=== PATIENT | female | born 1955 | race Caucasian/White ===

== ENCOUNTER 2016-08-31 08:19 | Emergency (ER) | payer BC, OTHER ==
--- NOTE | 2016-08-31 08:21 | PDOC ---
History of Present Illness - General Chief Complaint: Pain Stated Complaint: LEFT KNEE PAIN Time Seen by Provider: 08/31/16 08:20 History Source: Patient Exam Limitations: No Limitations - History of Present Illness Initial Comments: 08/31/16 08:20 THis is a 61 yo F with a history of Hyperlipidemia, presenting to the ER with a complaint of knee pain Pt states that she noted that last night she had pain and swelling in her elbows but it went away She began having pain in the left knee this morning No fevers, No chills No erythema (+) left knee swelling No known traumatic injury Pt also noted pain yesterday in both elbows and wrists, no swelling Pt has a know history of arthritis Pt can not remember any trauma to the left knee No arthropod bites PMH: Hyperlipidemia, Osteoporosis, Leukopenia, Right meniscal injury PSH: Cleft pallet repair x 2, , Colon resection, ERASMO, Meds: Cozaar, Pravastatin ALL: ibandronate, Cipro, shellfish Social: No alcohol, drugs, cigarettes GENERAL/CONSTITUTIONAL: No: fever, chills, weakness, loss of appetite. HEAD, EYES, EARS, NOSE AND THROAT: No: change in vision, ear pain, discharge, sore throat, throat swelling. CARDIOVASCULAR: No: chest pain, lightheadedness, palpitations, syncope RESPIRATORY: No: cough, shortness of breath, wheezing, hemoptysis, stridor. GASTROINTESTINAL: No: nausea, vomiting, diarrhea, abdominal cramping, rectal bleeding, constipation. GENITOURINARY: No: dysuria, hematuria, frequency, urgency, flank pain. MUSCULOSKELETAL: Yes: left knee pain No: back pain, neck pain, muscle swelling or pain SKIN: No: lesions, pallor, rash or easy bruising. NEUROLOGIC: No: headache, vertigo, paresthesias, weakness ENDOCRINE: No: unexplained weight gain or loss HEMATOLOGIC/LYMPHATIC: No: anemia, easy bleeding, swelling nodes. GENERAL: The patient is in no acute distress, walked into the ER with a limp. HEAD: Normal with no signs of trauma. EYES: PERRLA, EOMI, sclera anicteric, conjunctiva clear. ENT: Ears normal, nares patent, oropharynx clear without exudates. Moist mucous membranes. NECK: Normal range of motion, supple without lymphadenopathy, JVD, or masses. LUNGS: Breath sounds equal, clear to auscultation bilaterally. No wheezes, and no crackles. HEART:Regular rate and rhythm, normal S1 and S2 without murmur, rub or gallop. ABDOMEN: Soft, nontender, normoactive bowel sounds. No guarding, no rebound. No masses palpable. EXTREMITIES: Normal range of motion, no edema. Pt is able to range her left knee independently, has no pain when I range her knee. Stable Anterior and Posterior Drawer (+) knee swelling No knee erythema No patellar tenderness ?McMurrays positive NEUROLOGICAL: Cranial nerves II through XII grossly intact. Normal speech. No focal neurological deficits. MUSCULOSKELETAL: Back non-tender to palpation SKIN: Warm, Dry, normal turgor, no rashes or lesions noted. 08/31/16 08:22 08/31/16 08:34 08/31/16 08:45 Past History - Past Medical History Allergies/Adverse Reactions: Allergies Allergy/AdvReac Type Severity Reaction Status Date / Time ibandronate sodium Allergy Mild Verified 08/31/16 08:30 [From Boniva] ciprofloxacin [From Cipro] Allergy Verified 08/31/16 08:30 ciprofloxacin HCl Allergy Verified 08/31/16 08:30 [From Cipro] iodine Allergy Verified 08/31/16 08:30 shellfish derived Allergy Verified 08/31/16 08:30 HORMONE REPLACEMENT Allergy Uncoded 08/31/16 08:30 MEDICATION Home Medications: Ambulatory Orders Omeprazole [Prilosec (RX)] 40 mg PO DAILY 09/05/12 Pravastatin Sodium [Pravachol] 20 mg PO HS 09/05/12 Anemia: No Asthma: No Cancer: No Cardiac Disorders: No CVA: No COPD: No CHF: No Dementia: No Diabetes: No GI Disorders: No Disorders: No HTN: No Hypercholesterolemia: Yes Liver Disease: No Seizures: No Thyroid Disease: No - Surgical History Abdominal Surgery: Yes (INTESTINAL OBSTRUCTION.) Appendectomy: No Cardiac Surgery: No Cholecystectomy: No Lung Surgery: No Neurologic Surgery: No Orthopedic Surgery: No - Immunization History Td Vaccination: No - Psycho/Social/Smoking Cessation Hx Anxiety: No Suicidal Ideation: No Smoking Status: No Smoking History: Never smoked Number of Cigarettes Smoked Daily: 0 Hx Alcohol Use: No Drug/Substance Use Hx: No Substance Use Type: None Hx Substance Use Treatment: No Medical Decision Making - Medical Decision Making 08/31/16 08:56 (+) Knee pain Will do x ray Will give motrin Will joe wrap Will ask pt to follow up with Ortho Return to the ER for any other concerns or complaints 08/31/16 09:49 Xray demonstrates fluid in joint, no fracture Pt will be going to Dr Monroe's office for evaluation now Clinical impression: left knee effusion *DC/Admit/Observation/Transfer Diagnosis at time of Disposition: Knee pain Qualifiers: Laterality: left Chronicity: acute Qualified Code(s): M25.562 - Pain in left knee - Discharge Dispostion Disposition: HOME Condition at time of disposition: Improved Admit: No - Patient Instructions Printed Discharge Instructions: DI for Knee Effusion, DI for Knee Pain Additional Instructions: Thank you for coming in to the ER today Your x ray was negative You MUST follow up with the Orthopedist Return to the ER for any other concerns or complaints Take motrin for pain - Post Discharge Activity Work/School Note: Back to Work
[2016-08-31] MEDS ORDERED: IBUPROFEN 600 MG TABLET (FP) PO ONE ×2 (08:44→09:06)
[2016-08-31 08:56] VITALS: BP 143/82; PULSE 101; TEMP 98.2; BMI 25.4
== END 2016-08-31 09:53 | disposition home or self-care (01) ==
LOC: FER 08:19
DX: M25.562 Pain in left knee (principal); E78.00 Pure hypercholesterolemia, unspecified
CPT/HCPCS: 73562-TC-LT; 99283-25

== ENCOUNTER 2020-08-18 09:56 | Emergency (ER) | payer OTHER | END 2020-08-18 11:16 | disposition home or self-care (01) | LOC: JVIRT 09:56 | DX: Z11.52 Encounter for screening for COVID-19 (principal) | CPT/HCPCS: C9803; G2012-GT; U0003 ==

== ENCOUNTER 2021-04-10 10:27 | Emergency (ER) | payer OTHER ==
[2021-04-10 10:54] VITALS: TEMP 98.8; BMI 25.0
[2021-04-10 11:48] LABS: EOS % 0.9 % (0-4.5); WHITE BLOOD COUNT 5.5 K/mm3 (4.0-10.8)
[2021-04-10 11:52] LABS: BASO % 1.4 % (0-2.0); HEMATOCRIT 35.2 % (32.4-45.2); HEMOGLOBIN 11.6 GM/dl (10.7-15.3); LYMPH % 21.9 % (8-40); MEAN CELL VOLUME 84.7 fl (80-96); MEAN PLT VOLUME 10.4 fl (7.5-11.1); MONO % 7.2 % (3.8-10.2); NEUT % 68.6 % (42.8-82.8); PLATELET COUNT 208 10^3/uL (134-434); RBC 4.15 M/mm3 (3.60-5.2); RDW 12.1 % (11.6-15.6)
[2021-04-10 11:56] LABS: ALBUMIN 4.3 g/dl (3.4-5.0); BILIRUBIN,TOTAL 0.4 mg/dl (0.2-1); CALCIUM 9.2 mg/dl (8.5-10); CREATININE 0.7 mg/dl (0.55-1.3); TOT PROT 7.3 g/dl (6.4-8.2)
[2021-04-10 12:35] VITALS: BP 125/88; PULSE 84
== END 2021-04-10 14:35 | disposition home or self-care (01) ==
LOC: FER 10:27
DX: R00.2 Palpitations (principal); R91.1 Solitary pulmonary nodule; R07.9 Chest pain, unspecified
CPT/HCPCS: 36415; 71045-TC-FY; 80053; 84443; 84484; 85025; 93005; 99285-25; C8910

== ENCOUNTER 2021-04-28 05:22 | Day surgery (SDC) | payer OTHER ==
[2021-04-25 17:00] VITALS: BMI 24.7
[2021-04-28] MEDS ORDERED: ACETAMINOPHEN 325 MG TABLET (FP) PO ONE (14:00)
[2021-04-28] MEDS ORDERED: ACETAMINOPHEN 325 MG TABLET (FP) ONE (14:01)
[2021-04-28 14:27] VITALS: BP 147/73; PULSE 77; TEMP 97.5
== END 2021-04-28 15:31 | disposition home or self-care (01) ==
LOC: JRADIR 05:22
PROVIDERS: ATTEND Specialist
PROC: 0BBG3ZX Excision of Left Upper Lung Lobe, Percutaneous Approach, Diagnostic (ICD-10-PCS; principal; 2021-04-28)
DX: C34.12 Malignant neoplasm of upper lobe, left bronchus or lung (principal)
CPT/HCPCS: 32408; 71046-TC-FY; 88305-TC; 88342-TC

== ENCOUNTER 2021-06-09 05:06 | Day surgery (SDC) | payer OTHER ==
[2021-06-09 08:12] VITALS: BMI 24.2
[2021-06-09 15:38] VITALS: BP 143/59; PULSE 98; TEMP 98.3
[2021-06-09 17:13] LABS: BODY FLUID MACROPHAGES 1 %; BODY FLUID MONOCYTE 21 %
[2021-06-09 17:14] LABS: BODY FLUID MESOTHELIAL 1 %; BODYL FLD EOSINOPHIL 6 %
[2021-06-12 17:08] LABS: BODY FLUID ALBUMIN 2.6 g/dL (Not Estab.)
== END 2021-06-09 13:20 | disposition home or self-care (01) ==
LOC: JRADIR 05:06
PROVIDERS: ATTEND Surgery
PROC: 0W9B3ZZ Drainage of Left Pleural Cavity, Percutaneous Approach (ICD-10-PCS; principal; 2021-06-09)
DX: J90 Pleural effusion, not elsewhere classified (principal); C34.90 Malignant neoplasm of unspecified part of unspecified bronchus or lung
CPT/HCPCS: 32555; 36415; 71046-TC-FY; 76942; 82042; 82150; 82465; 82945; 83615; 83986; 84157; 84478; 87070; 87075; 87102; 87116; 87205; 87206; 87210; 88108; 88305-TC

== ENCOUNTER 2021-12-26 13:13 | Emergency (ER) | payer OTHER ==
[2021-12-26 13:28] VITALS: BP 134/71; PULSE 86; TEMP 100.5; BMI 24.6
[2021-12-26] MEDS ORDERED: BEBTELOVIMAB (EUA) 175 MG/2 ML VIAL IVPUSH ONE (14:25)
[2021-12-26] MEDS ORDERED: ACETAMINOPHEN 500 MG TABLET (FP) PO ONE (14:34)
[2021-12-26] MEDS ORDERED: ACETAMINOPHEN 500 MG TABLET (FP) ONE (15:00)
== END 2021-12-26 16:33 | disposition home or self-care (01) ==
LOC: JER 13:13
DX: U07.1 COVID-19 (principal)
CPT/HCPCS: 99284-25; Q0222